=== PATIENT | male | born 1995 | race Caucasian/White ===

== ENCOUNTER 2020-11-29 18:23 | Emergency (ER) | payer BC, MEDICAID ==
[~2020-11-29] VITALS: Ht 175.3 cm; Wt 65.9 kg
[~2020-11-29 18:23] MED LIST: NO HOME MEDS
[2020-11-29] MEDS ORDERED: HYDR-3965 PO (19:06)
[2020-11-29 19:12] VITALS: BP 175/112
== END 2020-11-29 19:20 | disposition home or self-care (01) ==
LOC: ER 18:23
DX: S60.511A Abrasion of right hand, initial encounter (principal); M25.511 Pain in right shoulder; Z79.899 Other long term (current) drug therapy; X58.XXXA Exposure to other specified factors, initial encounter; Y93.89 Activity, other specified; Y92.89 Other specified places as the place of occurrence of the external cause; Y99.8 Other external cause status
CPT/HCPCS: 73030; 99283

== ENCOUNTER 2023-08-23 20:46 | Emergency (ER) | payer MEDICAID ==
[~2023-08-23] VITALS: Ht 175.3 cm; Wt 65.9 kg
[~2023-08-23 20:46] MED LIST changes: +KETO10TA2 PO
[2023-08-23 21:42] VITALS: TEMP 97.9
[2023-08-23 21:44] LABS: CLARITY,URINE TURBID (Clear); COLOR,URINE BROWN (Yellow); PH,URINE 6.5 (4.8-8.0)
[2023-08-23 21:44] LABS: BASOPHILS # (AUTO) 0.1 X10'3 (0-0.2); BASOPHILS % (AUTO) 0.9 % (0-1); EOSINOPHILS # (AUTO) 0.4 X10'3 (0-0.9); EOSINOPHILS % (AUTO) 3.9 % (0-6); HEMATOCRIT 44.8 % (42.0-52.0); HEMOGLOBIN 15.1 g/dl (14.0-17.9); LYMPHOCYTES # (AUTO) 2.1 X10'3 (1.1-4.8); LYMPHOCYTES % (AUTO) 20.4 % (21-51); MEAN CORPUSCULAR HEMOGLOBIN 30.6 PG (27.0-31.0); MEAN CORPUSCULAR HGB CONC 33.6 g/dL (33.0-36.5); MEAN CORPUSCULAR VOLUME 91.2 FL (78-98); MEAN PLATELET VOLUME 8.6 FL (7.4-10.4); MONOCYTES % (AUTO) 9.3 % (2-12); NEUTROPHILS # (AUTO) 6.9 X10'3 (1.8-7.7); NEUTROPHILS % (AUTO) 65.5 % (42-75); PLATELET COUNT 262 X10'3 (140-440); RED BLOOD COUNT 4.92 X10'6 (4.70-6.10); RED CELL DISTRIBUTION WIDTH 13.5 % (11.5-14.5); WHITE BLOOD COUNT 10.5 X10'3 (4.5-11.0)
[2023-08-23] MEDS: ondansetron/PF 4mg/2ml inj IV ONE (21:47)
[2023-08-23] MEDS: acetaminophen 1,000mg/100ml IV 100 ML IV STA (21:48)
[2023-08-23 21:51] LABS: UA COLLECTION TYPE CLN CATCH MIDSTREAM
[2023-08-23 21:55] LABS: ALANINE AMINOTRANSFERASE 18 U/L (12-78); ALBUMIN 4.1 G/DL (3.4-5.0); ALBUMIN/GLOBULIN RATIO 1.1 (1.1-1.5); ALKALINE PHOSPHATASE 65 IU/L (46-116); ANION GAP 7 (8-16); ASPARTATE AMINO TRANSFERASE 12 U/L (10-37); BILIRUBIN,TOTAL 0.8 MG/DL (0.1-1.0); BLOOD UREA NITROGEN 16 MG/DL (7-18); CALCIUM 8.6 MG/DL (8.5-10.1); CHLORIDE 101 MMOL/L (99-107); GLUCOSE 80 MG/DL (70-104); LIPASE 22 U/L (16-77); POTASSIUM 3.4 MMOL/L (3.5-5.1); SODIUM 138 MMOL/L (135-145); TOTAL CARBON DIOXIDE 29.6 MMOL/L (24-32); TOTAL PROTEIN 7.8 G/DL (6.4-8.2); eCRCL 103 ML/MIN; eGFR 89 ML/MIN
[2023-08-23] MEDS ORDERED: ketorolac trometh. 30mg/ml inj. IV ONE (22:00)
[2023-08-23 22:02] LABS: RBC,URINE TNTC /HPF (0-2); WBC,URINE 0-4 /HPF (0-4)
[2023-08-23 22:03] LABS: BACTERIA,URINE FEW /HPF (Neg); MUCUS STRANDS MODERATE /LPF (Neg); SQUAMOUS EPITHELIAL CELL,UR FEW /LPF (FEW)
[2023-08-23 22:05] LABS: CAL OXALATE CRYSTALS FEW /HPF (NEGATIVE)
[2023-08-23] MEDS: ketorolac tromethamine 15mg/ml inj. IV ONE (22:09)
[2023-08-23] MEDS ORDERED: FLO0.4C PO (23:17)
[2023-08-23] MEDS ORDERED: ONDA4TAB12 PO (23:17)
[2023-08-23] MEDS ORDERED: IBUP-1984 PO (23:17)
[2023-08-23] MEDS ORDERED: HYDR-3965 PO (23:17)
[2023-08-23] MEDS: morphine 4 MG/ML inj SYRINge IV ONE (23:31)
[2023-08-23] MEDS: tamsulosin 0.4mg capsule PO STA (23:31)
[2023-08-23 23:48] VITALS: BP 106/65; PULSE 64; RESP 16; O2SAT 97
== END 2023-08-23 23:52 | disposition home or self-care (01) ==
LOC: ER 20:47
DX: N23 Unspecified renal colic (principal); Z79.1 Long term (current) use of non-steroidal anti-inflammatories (NSAID); Z79.899 Other long term (current) drug therapy
CPT/HCPCS: 36415; 74176; 80053; 81001; 83690; 85025; 96374; 96375; 99285; J0131; J1885; J2270; J2405